=== PATIENT | female | born 1960 | race Two or more races ===

== ENCOUNTER → 2025-03-04 09:07 | Outpatient (REF) | payer BC, SELFPAY | LOC: WDC 09:07 | PROVIDERS: ATTENDING PHYSICIAN Nurse Practitioner Family | DX: N63.11 Unspecified lump in the right breast, upper outer quadrant (principal) | CPT/HCPCS: 76642; 77062; 77066 ==

== ENCOUNTER → 2025-03-06 07:39 | Outpatient (REF) | payer BC, SELFPAY ==
--- NOTE | 2025-03-06 13:32 | OID.BR.INTR ---
[facility] Breast Navigator - Initial
- -
Date of Contact: 03/06/25
Met with patient. Patient given written information on navigator service available at [facility]. Will follow up as needed per protocol.
== END ==
LOC: WDC 07:39
PROVIDERS: ATTENDING PHYSICIAN Nurse Practitioner Family
DX: N63.11 Unspecified lump in the right breast, upper outer quadrant (principal)
CPT/HCPCS: 19083; 88305; 88341; 88342; 88360; A4648

== ENCOUNTER → 2025-04-03 14:00 | Outpatient (REF) | payer BC, SELFPAY | LOC: HWRCS 14:00 | PROVIDERS: ATTENDING PHYSICIAN Internal Medicine Cardiovascular Disease; FAMILY PHYSICIAN Nurse Practitioner Family | DX: Z01.818 Encounter for other preprocedural examination (principal); I44.7 Left bundle-branch block, unspecified; R94.31 Abnormal electrocardiogram [ECG] [EKG]; I51.7 Cardiomegaly | CPT/HCPCS: 93306 ==

== ENCOUNTER → 2025-04-07 09:41 | Outpatient (REF) | payer BC, SELFPAY | LOC: WDC 09:41 | PROVIDERS: ATTENDING PHYSICIAN Surgery | DX: C50.411 Malignant neoplasm of upper-outer quadrant of right female breast (principal) | CPT/HCPCS: 38792; 76942; A9541 ==

== ENCOUNTER 2025-04-08 06:21 | Day surgery (SDC) | payer BC, SELFPAY ==
[2025-03-20 09:04] LABS: Hematocrit 43.6 % (37.0-47.0); Hemoglobin 14.5 g/dL (12.0-16.0); Mean Corp Hgb Conc. 33.3 g/dL (33.0-37.0); Mean Corpuscular Volume 89.5 fL (81.0-99.0); Platelet Count 263 10^3/uL (130-400); Red Cell Dist. Width 12.5 % (11.5-14.5)
[2025-03-20 09:54] LABS: ALT (SGPT) 32 U/L (0-35); AST (SGOT) 21 U/L (14-36); Albumin 4.3 g/dl (3.5-5.0); Alkaline Phosphatase 94 U/L (38-126); Blood Urea Nitrogen 18 mg/dl (7-17); Calcium 9.4 mg/dl (8.4-10.2); Carbon Dioxide 26 mmol/L (22-30); Chloride 102 mmol/L (98-107); Glucose 157 mg/dl (70-99); Potassium 4.4 mmol/L (3.5-5.1); Sodium 134 mmol/L (135-145); Total Protein 7.0 g/dl (6.3-8.2); eGFR > 60.00
[2025-03-20 13:39] LABS: Prealbumin (Transthyretin) 33.1 mg/dl (17.6-36.0)
[2025-03-20 13:46] VITALS: BMI 28.9
[2025-03-20 13:50] LABS: Vitamin D, 25-OH*** 29.9 ng/mL (30-80)
--- NOTE | 2025-03-20 14:05 | PTCARENOTE ---
Dr. Gary reviewed abnormal EKG, no further action requested.
[2025-04-08] VITALS (8 sets, daily range): BP systolic 133–156; BP diastolic 72–78; BMI 28.9
[2025-04-08] MEDS: NORMOSOL-R/PLASMALYTE-A 1000 IV (09:30)
[2025-04-08] MEDS: TYLENOL 1000 MG PO (09:32)
[2025-04-08] MEDS: LOVENOX 40 MG SC (09:42)
[2025-04-08] MEDS: VANCOCIN 200 IV (09:44)
[2025-04-08 09:51] LABS: Glucose - Point of Care 146 mg/dl (70-99)
--- NOTE | 2025-04-08 12:05 | W.IMMPOSTOP ---
Surgical Immed Post Op Note
-
Primary Surgeon: Lamont
Assisting Surgeon: None
Pre-op Diagnosis: right breast ca
Post-op Diagnosis: right breast ca
Procedure Performed: Right lumpectomy, sentinel lymph node mapping and biopsy, oncoplastic mastoplasty
Anesthesia Type: LMA general
Specimen / Cultures: Right lumpectomy, margins, nodes,
Estimated Blood Loss: 6cc
Complications: None
Operative Findings: None
--- NOTE | 2025-04-08 12:08 | OR.RPT ---
Addendum entered and electronically signed by Jamila Miguel MD 04/08/25 14:44:
The patient also had an oncoplastic mastoplasty performed today.
[id number]
Original Note:
Operative Report
Operative Report
Operative date: 04/08/2025
Preoperative diagnosis: Right breast carcinoma
Postoperative diagnosis: Right breast carcinoma
Procedure: Right lumpectomy, sentinel lymph node mapping and biopsy, and closure with oncoplastic mastoplasty
Surgeon: Lamont
The patient is a 64-year-old female who presented with a palpable right breast mass. She underwent biopsy showing infiltrating ductal carcinoma. She was clinically node-negative presents for breast conservation surgery. On the day prior to the
procedure the patient presented to the breast imaging center where technetium radiotracer was injected in the breast parenchyma. On the day of the procedure she presented to the same-day surgical services unit. She was prepped. She verified site
and procedure and DVT and antibiotic prophylaxis were provided. She was taken to the operating room and in the supine position general LMA anesthesia was induced. Right breast and axilla were prepped and draped in usual sterile fashion there was
an appropriate timeout procedure performed by all staff members.
Breast tissues were anesthetized with 1% lidocaine plain. Attention was first turned to the axilla where a curvilinear incision was made inferior to the hairline overlying the area of highest external gamma count. Dissection was carried through
clavipectoral fascia using the cautery. Using the neoprobe gamma probe to sentinel node packets were encountered and excised by tying their feeding vessels with 3-0 Polysorb sutures tied. After the removal there is a greater than fourfold
reduction of background count. Hemostasis was verified. A small portion of Surgicel was placed in the resection bed. Marcaine 0.5% plain was instilled in total tissues and the wound was closed in multiple layers using simple interrupted 2-0
Polysorb. Skin was closed with a running subcuticular Monocryl. Next attention was turned to the lumpectomy where a curvilinear incision was made overlying the palpable mass. Skin flaps were elevated in the oncoplastic plane and a wide lumpectomy
was performed using the cautery. Time out of body was noted and the specimen was sent for placement in from out formalin. Additional margins were harvested for permanent analysis from the posterior, medial, superior, lateral, inferior, and
anterior dimensions. These were oriented as well. This left resultant defect of 9 x 5 cm therefore in the oncoplastic plane a separate parenchymal incision was made to move and advancement flap. Hemostasis was carefully maintained. Marcaine 0.5%
plain was instilled into all tissues and hemoclips were placed in the resection cavity. This wound was closed using simple interrupted 2-0 Polysorb on deep intermediate and subcutaneous tissues and skin was closed with a running subcuticular 4
Monocryl. Surgical glue and sterile compressive dressings were applied. All sponge needle and instrument counts were correct the patient was transferred to the recovery room in stable condition.
([id number])
[place] Node Bx Breast Cancer
[place] Node Bx Breast Cancer
Operation performed with curative intent: Yes
Tracer(s) to ID [place] Nodes in Non-Neoadjuvant setting: Radioactive Tracer
Tracer(s) to ID Sent[place] Nodes in the Neoadjuvant Setting: N/A
All nodes at end of dye-filled Lymphatic Channel removed: N/A
All Significantly Radioactive Nodes were removed: Yes
All Palpably Suspicious Nodes were Removed: Yes
Bx Proven Pos Nodes Marked Prior to Chemo ID'd & Removed: N/A
[2025-04-08 12:23] LABS: Glucose - Point of Care 163 mg/dl (70-99)
[2025-04-08] MEDS: ZOFRAN 4 MG IV (13:03)
== END 2025-04-08 14:27 | disposition home or self-care (01) ==
LOC: SDS 06:21
PROVIDERS: ATTENDING PHYSICIAN Surgery; FAMILY PHYSICIAN Nurse Practitioner Family
DX: C50.911 Malignant neoplasm of unspecified site of right female breast (principal)
CPT/HCPCS: 19301; 38525; 38900; 80053; 82306; 82962; 84134; 85027; 88305; 88307; 88342; 93005